=== PATIENT | female | born 1950 | race Caucasian/White ===

== ENCOUNTER 2018-12-06 19:37 | Inpatient (IN) | payer MEDICARE, SELFPAY ==
[2018-12-06] MEDS: Ondansetron 4 MG/2 ML Vial IV (19:44)
[2018-12-06] MEDS: Morphine 4 MG/ML Syringe 6 MG IV (19:46)
[2018-12-06 19:49] VITALS: BP 112/68; PULSE 82; RESP 16; TEMP 36.8; O2SAT 100; BMI 21.5
[2018-12-06 19:53] VITALS: O2SAT 100
--- NOTE | 2018-12-06 20:24 | RAD_ITS ---
STUDY: X-RAY - RIGHT KNEE REASON FOR EXAM: Female, 68 years old. Fell on right hip. TECHNIQUE: 2 view(s) of the knee. COMPARISON: None. FINDINGS: Normal visualized distal femur. Normal visualized proximal tibia and fibula. Normal proximal tibiofibular articulation. Normal medial femorotibial compartment. Normal lateral femorotibial compartment. Normal patellofemoral articulation. The soft tissue structures are unremarkable. RAD/Knee 1 or 2 Views IMPRESSION: Normal x-ray examination of the knee. Electronically Signed: Liz Aparicio MD at 21:29 EDT Tel , Service support ,
--- NOTE | 2018-12-06 20:24 | RAD_ITS ---
STUDY: X-RAY - RIGHT FEMUR REASON FOR STUDY: Female, 68 years old. Fellow and right hip. TECHNIQUE: 4 view(s) of the femur. COMPARISON: None. FINDINGS: Acute, nondisplaced intertrochanteric fracture of the right femoral neck. No angulation. The femur is otherwise unremarkable. No additional fracture is seen. Right hip joint is well-maintained. Soft tissues and bony structures are otherwise unremarkable. RAD/Femur Min 2 Views IMPRESSION: Acute nondisplaced intertrochanteric fracture of the right femoral neck. Electronically Signed: Liz Aparicio MD at 21:30 EDT Tel , Service support ,
--- NOTE | 2018-12-06 20:24 | RAD_ITS ---
STUDY: X-RAY - PELVIS REASON FOR EXAM: Female, 68 years old. Fell on right hip from retaining wall. TECHNIQUE: One view of the pelvis was obtained. COMPARISON: None. FINDINGS: Acute, nondisplaced intertrochanteric fracture of the right femoral neck. No angulation. Prior internal fixation of the left hip. No left hip fracture or periprosthetic fracture. Soft tissues and bony structures are otherwise unremarkable. RAD/Pelvis 1 or 2 Views IMPRESSION: Nondisplaced intertrochanteric fracture of the right hip. Electronically Signed: Liz Aparicio MD at 21:28 EDT Tel , Service support ,
[2018-12-06] MEDS: morphine 8 MG/ML Syringe 6 MG IV ×2 (20:34→22:04)
[2018-12-06 20:49] LABS: Hematocrit 38.2 % (37-47); Hemoglobin 13.1 g/dL (12.0-15.0); Mean Corp Hgb Conc 34.3 g/dL (32-36); Mean Corpuscular Hgb 32.3 pg (27.0-32.0); Mean Corpuscular Volume 94.1 fL (81-99); Mean Platelet Vol. 8.6 fl (6.2-12.0); Platelet Count 290 K/mm3 (150-450); RBC Distribution Width CV 12.6 % (11.6-14.6); RBC Distribution Width SD 43.6 fl (35.1-43.9); Red Blood Count 4.06 M/mm3 (4.2-5.4); White Blood Count 20.1 K/mm3 (4.4-11.0)
[2018-12-06 20:56] LABS: Anion Gap 11 (5-15); BUN 17 mg/dL (7-18); Calcium,Total 9.8 mg/dL (8.5-10.1); Chloride 103 mmol/L (98-107); Creatinine, Serum 0.85 mg/dL (0.55-1.02); EST Glomerular Filtration Rate 71 mL/min (>60); Est Glom Filt Rate - Afr Amer 85 mL/min (>60); Estimated Creatinine Clearance 53.94 ml/min; Glucose 95 mg/dL (74-106); Potassium 3.2 mmol/L (3.5-5.1); Sodium Level 139 mmol/L (136-145)
--- NOTE | 2018-12-06 21:08 | EKG12_ITS ---
Test Reason : PRE OP Blood Pressure : / mmHG Vent. Rate : 081 BPM Atrial Rate : 081 BPM P-R Int : 152 ms QRS Dur : 076 ms QT Int : 394 ms P-R-T Axes : 019 014 044 degrees QTc Int : 457 ms Normal sinus rhythm Normal ECG Confirmed by AMBER CHANCE, ANGELA ([id number]), commercial production editor LAVELLE STUART ([id number]) on 12/10/2018 10:30:43 AM Referred By: Saleem Claudio Confirmed By:ANGELA CLARK MD
--- NOTE | 2018-12-06 21:10 | RAD_ITS ---
STUDY: X-RAY CHEST REASON FOR EXAM: Female, 68 years old. Fall, injury, right hip fracture. TECHNIQUE: Portable chest. COMPARISON: None. FINDINGS: The lungs are clear and expanded. There is no demonstrated pleural abnormality. Normal size heart. Normal mediastinum and jojo. Normal visualized pulmonary arteries. Normal visualized aortic arch and descending thoracic aorta. Normal visualized thoracic spine. Normal visualized ribs, clavicles, and shoulders. There is no demonstrated abnormality of the visualized soft tissue structures of the upper abdomen. RAD/Chest 1 View (Portable) IMPRESSION: Normal x-ray examination of the chest. Electronically Signed: Liz Aparicio MD at 21:34 EDT Tel , Service support ,
--- NOTE | 2018-12-06 21:35 | ED.DCSUM_ITS ---
- ER Visit Summary Date of Service: 12/06/18 Chief Complaint: Fall with right hip pain History of Present Illness: The patient is a 68 F past medical history. She has had a prior left hip fracture which was repaired. He states she was outside today stepped and did not see there was a retaining wall and fell over fell about 3 feet onto her right hip. Was unable to stand due to pain and had to crawl on all fours back to her house. Denies other injuries. Denies any headache or head injury. She has abrasions on her elbows from crawling on all fours. Physical Examination: Older female no acute distress. Vital signs are stable afebrile. HEENT exam unremarkable atraumatic. C-spine nontender. Lungs clear to auscultation. Heart regular rhythm no murmur. Abdomen soft and nontender. Normal bowel sounds no peritoneal signs. Remedies she has pain on palpation her right hip. She has decreased range of motion of the right hip due to pain. In short and externally rotated. She has a mild pain on palpation to her right knee but is not swollen. Right lower leg is nontender. Normal DP pulse. Ankle and foot are nontender normal sensation. Left lower extremity is normal. Neurologically she is awake and alert with no focal motor deficits. Test Results: Pelvis and right hip right x-rays x2 show intertrochanteric hip fracture. Right knee x-ray shows chronic changes but no acute process. And preop chest x- ray shows no acute abnormality. Portable one view. Femur x-ray shows a hip fracture x2 views. Preop labs show white count of 20,000. She has no clinical signs or history of infection. Chemistries are normal potassium 3.2 normal creatinine and gap. Emergency Department Course and Treatment: Patient's been treated with morphine several times for pain. Zofran for nausea. I have spoken to the hospitalist and also Dr. Too Song and the patient will be admitted for right hip fracture surgery. Treatment Plan: Hip fracture repair Disposition: Admission Impression: Acute fall Acute right hip intertrochanteric fracture This note was generated with [employer] dictation software. It may contain incorrect words, spelling, and punctuation that were not noted in review of the chart prior to signing ED Disposition - Plan for ED Patient: Referrals: Jl Turner MD [Primary Care Provider] -
--- NOTE | 2018-12-06 21:47 | HP.PCM_ITS ---
Problem List (1) Closed intertrochanteric fracture of right hip Status: Acute (2) History of fracture of left hip Status: Chronic History of Present Illness Date of Admission: 12/06/18 Chief Complaint: Fall from a height on right hip and fracture The patient is a 68 year old F with no significant past medical history came to ER after she fell from a wall of about 3 height mainly on the right lateral side. As per the family members she crawled about 30 feet to her house. She was not able to stand or ambulate. She denies loss of consciousness, headache or head injury. Denies any chest pain or shortness of breath. Patient had left hip fracture and ORIF done. In ED, pelvis and right hip x-rays shows intertrochanteric hip fracture. Orthopedic surgeon Dr. Song was consulted from ER and he recommended for surgery tomorrow. Patient has good functional capacity and does not have any limitation in walking before. Denies any history of cardiac disease, pulmonary disease, stroke or GI disorder. Denies any recent flulike illness. No lower urinary tract symptoms. Patient denies history of smoking. Chest x-ray was done and reported as normal x-ray. EKG was reviewed and normal sinus rhythm at 81 beats/m. [] Laboratory Results 12/06/18 20:34: WBC 20.1 H, RBC 4.06 L, Hgb 13.1, Hct 38.2, MCV 94.1, MCH 32.3 H , MCHC 34.3, RDW Std Deviation 43.6, RDW Coeff of Luis Miguel 12.6, Plt Count 290, MPV 8.6 12/06/18 20:34: Sodium 139, Potassium 3.2 L, Chloride 103, Carbon Dioxide 25.0, Anion Gap 11, BUN 17, Creatinine 0.85, Estim Creat Clear Calc 53.94, Est GFR (MDRD) Af Amer 85, Est GFR (MDRD) Non-Af 71, BUN/Creatinine Ratio 20.0, Glucose 95, Calcium 9.8 12/06/18 21:20: Blood Type Pending, Antibody Screen Pending Past Medical History Past Medical History (Chronic Problems): Chronic Problems History of fracture of left hip (Chronic) Allergies No Known Allergies Allergy (Verified 12/06/18 19:57) Home Medications: Ambulatory Orders Medication Instructions Recorded NK 12/06/18 Smoking Status: Never smoker - *Family History Paternal History Items: Hypertension Maternal History Items: Hypertension Review of Systems Constitutional: Denies: Chills, Fever, Weight Change HEENT: Denies: Head Aches, Sinus Congestion, Sinus Drainage Cardiovascular: Denies: Chest Pain, Palpitations Respiratory: Denies: Cough, Shortness of breath at rest, Sputum production Gastrointestinal: Denies: Abdominal Pain, Nausea, Vomiting Genitourinary: Denies: Dysuria Musculoskeletal: Reports: Joint Pain. Denies: Joint Tenderness Skin: Denies: Rash, Wounds Neurological: Denies: Numbness, Tingling, Focal weakness Psychiatric: Denies: Anxiety, Depression, Homicidal Ideations, Suicidal Ideations Hematologic/ Lymphatic: Denies: Easy Bruising, Easy Bleeding VTE Information - Inpt Only VTE Present on Admission: No VTE Mechan Device Prophylaxis: None VTE Pharm Prophylaxis ordered?: Yes Patient Problems: Active and Suspected Problems Closed intertrochanteric fracture of right hip (Acute) - Physical Exam General: Alert, Oriented x3, Cooperative HEENT: Atraumatic, PERRLA, EOMI, Normocephalic Neck: Supple, No JVD, Negative Carotid Bruits Lungs: Clear to auscultation, Normal air movement, No rhonchi, No wheeze, No rales Cardiovascular: Regular rate, Regular Rhythm, Normal S1, Normal S2, No murmurs Abdomen: Bowel Sounds Present, Soft, Non Tender, Non-Distended Extremities: No edema, Capillary Refill Less than 3 Seconds Skin: No rashes, No breakdown Musculoskeletal: Arthritic Changes, Tenderness - Over greater trochanter of right hip., - - Some bruise present on elbow because of crawling Neurological: Cranial nerves II-XII grossly intact, Deep Tendon Reflexes 2+/4 and Symmetrical, Neuro grossly intact Psych/Mental Status: Normal Affect, Appropriate Vital Signs Temp Pulse Resp BP Pulse Ox 98.3 F 82 16 112/68 100 12/06/18 19:49 12/06/18 19:49 12/06/18 19:49 12/06/18 19:49 12/06/18 19:53 Oxygen Delivery Method Room Air Weight: 125 lb 9.245 oz Body Mass Index (BMI) 21.5 Laboratory Tests Past 24 Hrs 12/06/18 12/06/18 12/06/18 20:34 20:34 21:20 WBC 20.1 H RBC 4.06 L Hgb 13.1 Hct 38.2 MCV 94.1 MCH 32.3 H MCHC 34.3 RDW Std Deviation 43.6 RDW Coeff of Luis Miguel 12.6 Plt Count 290 MPV 8.6 Sodium 139 Potassium 3.2 L Chloride 103 Carbon Dioxide 25.0 Anion Gap 11 BUN 17 Creatinine 0.85 Estim Creat Clear Calc 53.94 Est GFR (MDRD) Af Amer 85 Est GFR (MDRD) Non-Af 71 BUN/Creatinine Ratio 20.0 Glucose 95 Calcium 9.8 Blood Type Pending Antibody Screen Pending Assessment/Plan All Active Problems Closed intertrochanteric fracture of right hip (Acute) The patient is a 68 year old F with no significant past medical history came to ER after she fell from a wall of about 3 height mainly on the right lateral side.Patient had left hip fracture and ORIF done. In ED, pelvis and right hip x-rays shows intertrochanteric hip fracture. Orthopedic surgeon Dr. Song was consulted from ER and he recommended for surgery tomorrow. Chest x-ray was done and reported as normal x-ray. EKG was reviewed and normal sinus rhythm at 81 beats/m. 1. Closed right hip intertrochanteric fracture: Patient is being admitted on [facility] floor. Revised cardiac risk index for preoperative score is 0 point, class I risk. It was 3.9% 30-day risk of , [place] or cardiac arrest. Patient has good functional capacity. N.p.o. post midnight. Orthopedic surgeon Dr. Too Song has been consulted. Heparin 5000 units 1 dose tonight and then hold until surgery. Pain control. IV fluid normal saline 100 normal per hour. PT and OT ordered. 2. History of left hip fracture status post ORIF in the past: DVT prophylaxis: As mentioned above. Postoperative prophylaxis as per description of the surgeon and intraoperative findings [] Laboratory Results 12/06/18 20:34: WBC 20.1 H, RBC 4.06 L, Hgb 13.1, Hct 38.2, MCV 94.1, MCH 32.3 H , MCHC 34.3, RDW Std Deviation 43.6, RDW Coeff of Luis Miguel 12.6, Plt Count 290, MPV 8.6 12/06/18 20:34: Sodium 139, Potassium 3.2 L, Chloride 103, Carbon Dioxide 25.0, Anion Gap 11, BUN 17, Creatinine 0.85, Estim Creat Clear Calc 53.94, Est GFR (MDRD) Af Amer 85, Est GFR (MDRD) Non-Af 71, BUN/Creatinine Ratio 20.0, Glucose 95, Calcium 9.8 12/06/18 21:20: Blood Type Pending, Antibody Screen Pending Clinical Impression(s) from Imaging Studies Femur X-Ray 12/06/18 20:24 IMPRESSION: Acute nondisplaced intertrochanteric fracture of the right femoral neck. Knee X-Ray 12/06/18 20:24 IMPRESSION: Normal x-ray examination of the knee. Pelvis X-Ray 12/06/18 20:24 IMPRESSION: Nondisplaced intertrochanteric fracture of the right hip. Electronically Signed: Liz Aparicio MD at 21:28 EDT Tel , Service support , Chest X-Ray 12/06/18 21:10 IMPRESSION: Normal x-ray examination of the chest. Code Visit Inpatient E&M: 37141 Init Hosp L3
[2018-12-06 22:03] VITALS: BP 135/69; PULSE 84; RESP 16; O2SAT 100
[2018-12-06 22:07] VITALS: BP 135/69; PULSE 89; RESP 16; TEMP 37.1; O2SAT 100
[2018-12-06 22:51] VITALS: BP 131/83; PULSE 87; RESP 20; TEMP 37.1; O2SAT 98
[2018-12-06 22:53] VITALS: BMI 21.4
[2018-12-06 23:00] VITALS: BMI 56.6
[2018-12-06] MEDS: oxyCODONE 5 MG Tablet PO (23:59)
[2018-12-07] VITALS (15 sets, daily range): BP systolic 91–127; BP diastolic 35–61; PULSE 59–86; RESP 16–18; TEMP 36.4–37.2; O2SAT 93–99; BMI 56.6
[2018-12-07] MEDS: 0.9% Normal Saline 1,000 ML 100 ML IV
[2018-12-07] MEDS: Heparin Injection (Vial) 5,000 UNIT/ML VIAL 5000 UNIT SC
[2018-12-07] MEDS: 0.9% NaCl Peripheral Flush Adult/Peds IV ×2 (00:05→22:38)
[2018-12-07] MEDS: HYDROmorphone 0.5 MG/0.5 ML SYRINGE IV ×2 (05:51→09:34)
[2018-12-07 06:20] LABS: Absolute Lymphocyte Count 1.84 X10^3/uL (0.83-4.51); Absolute Neutrophil Count 5.1 X10^3/uL (2.0-7.7); Basophil# 0.02 X10^3/uL; Basophil% 0.3 % (0-1); Eosinophil# 0.14 X10^3/uL; Eosinophils% 1.8 % (0-5); Hematocrit 34.8 % (37-47); Hemoglobin 11.8 g/dL (12.0-15.0); Lymphocyte # 1.84 X10^3/ul (4.0); Lymphocyte % 24.1 % (19-41); Mean Corp Hgb Conc 33.9 g/dL (32-36); Mean Corpuscular Hgb 32.1 pg (27.0-32.0); Mean Corpuscular Volume 94.6 fL (81-99); Mean Platelet Vol. 8.8 fl (6.2-12.0); Monocyte# 0.55 X10^3/uL; Monocyte% 7.2 % (0-10); NRBC Flagged by Analyzer 0 % (0-5); Neutrophil # 5.07 X10^3/uL (2.7-7.7); Neutrophil % 66.3 % (47-70); Platelet Count 232 K/mm3 (150-450); RBC Distribution Width CV 12.9 % (11.6-14.6); RBC Distribution Width SD 44.7 fl (35.1-43.9); Red Blood Count 3.68 M/mm3 (4.2-5.4); White Blood Count 7.6 K/mm3 (4.4-11.0)
[2018-12-07 06:34] LABS: Anion Gap 2 (5-15); BUN 13 mg/dL (7-18); BUN/Creat Ratio 17.9 RATIO (10-20); Calcium,Total 8.6 mg/dL (8.5-10.1); Chloride 105 mmol/L (98-107); Creatinine, Serum 0.73 mg/dL (0.55-1.02); EST Glomerular Filtration Rate 84 mL/min (>60); Est Glom Filt Rate - Afr Amer 102 mL/min (>60); Estimated Creatinine Clearance 45.85 ml/min; Glucose 101 mg/dL (74-106); Magnesium 1.8 mg/dL (1.6-2.6); Potassium 4.6 mmol/L (3.5-5.1); Sodium Level 136 mmol/L (136-145)
--- NOTE | 2018-12-07 08:25 | PN_ITS ---
Patient Problems: Active and Suspected Problems (Last Updated 12/07/18 @ 11:11 by Too Song MD) Closed intertrochanteric fracture of right hip (Acute) Subjective: The patient is a 68-year-old female with no significant past medical history who presented to the emergency department at [facility] on 12/06/2018 after falling from a wall which was approximately 3 feet in height. She fell on her right side and was complaining of right hip pain. She had to crawl approximately 30 feet to her house to reach the phone. She was unable to stand or ambulate. She denied loss of consciousness, headache or any head injury. X- rays in the emergency department showed a acute nondisplaced intertrochanteric fracture of the right femoral neck. Right knee x-ray was normal. Chest x-ray showed hyperexpansion but no infiltrates, pleural effusions or pulmonary vascular congestion. Vital signs at presentation to the emergency department were temp 98.3, pulse rate 82, blood pressure 112/68, respiratory rate 16 and she was 100% saturated on room air. CBC was remarkable for an elevated white blood cell count at 20.1, hemoglobin 13.1 and platelets of 290,000. Potassium was low at 3.2 and the BUN was 17 with a creatinine of 0.85. Calcium was 9.8. EKG showed normal sinus rhythm with no suspicious ST or T wave changes. She denies chest pain, shortness of breath with exertion, palpitations, any history of syncope, family history of cardiovascular disease. - Physical Exam General: Alert, Oriented x3, Cooperative, - - Appears to be in pain HEENT: Atraumatic, PERRLA, EOMI, Normocephalic Oral: Dry Mucosa Neck: Supple, No JVD, Negative Carotid Bruits, Trachea Midline Lungs: Clear to auscultation - Anterior and lateral Cardiovascular: Regular rate, Regular Rhythm, Normal S1, Normal S2, No murmurs, No rub noted, No Gallop Abdomen: Bowel Sounds Present, Soft, Non Tender, Non-Distended Extremities: No clubbing, No cyanosis, No edema, Capillary Refill Less than 3 Seconds, Peripheral Pulses Normal, - - Intact sensation both lower extremities Skin: No rashes, No breakdown Neurological: Cranial nerves II-XII grossly intact, Neuro grossly intact Psych/Mental Status: Normal Affect, Appropriate Vital Signs Temp Pulse Resp BP Pulse Ox 98.7 F 78 16 127/50 H 99 12/07/18 04:47 12/07/18 04:47 12/07/18 04:47 12/07/18 04:47 12/07/18 04:47 Oxygen Delivery Method Room Air Weight: 129 lb 6.581 oz Body Mass Index (BMI) 21.4 Intake and Output for Last 24 Hours 12/05/18 12/06/18 12/07/18 23:59 23:59 23:59 Intake Total 776 / 776 Output Total 650 / 650 Balance 126 / 126 Laboratory Tests Past 24 Hrs 12/06/18 12/06/18 12/06/18 20:34 20:34 21:20 WBC 20.1 H RBC 4.06 L Hgb 13.1 Hct 38.2 MCV 94.1 MCH 32.3 H MCHC 34.3 RDW Std Deviation 43.6 RDW Coeff of Luis Miguel 12.6 Plt Count 290 MPV 8.6 Immature Gran % (Auto) Neut % (Auto) Lymph % (Auto) [place] % (Auto) Eos % (Auto) Baso % (Auto) Absolute Neuts (auto) Absolute Lymphs (auto) Nucleated RBC % APTT Sodium 139 Potassium 3.2 L Chloride 103 Carbon Dioxide 25.0 Anion Gap 11 BUN 17 Creatinine 0.85 Estim Creat Clear Calc 53.94 Est GFR (MDRD) Af Amer 85 Est GFR (MDRD) Non-Af 71 BUN/Creatinine Ratio 20.0 Glucose 95 Calcium 9.8 Magnesium Blood Type A POSITIVE Antibody Screen NEGATIVE 12/07/18 12/07/18 12/07/18 05:57 05:57 05:57 WBC 7.6 RBC 3.68 L Hgb 11.8 L Hct 34.8 L MCV 94.6 MCH 32.1 H MCHC 33.9 RDW Std Deviation 44.7 H RDW Coeff of Luis Miguel 12.9 Plt Count 232 MPV 8.8 Immature Gran % (Auto) 0.300 Neut % (Auto) 66.3 Lymph % (Auto) 24.1 [place] % (Auto) 7.2 Eos % (Auto) 1.8 Baso % (Auto) 0.3 Absolute Neuts (auto) 5.1 Absolute Lymphs (auto) 1.84 Nucleated RBC % 0 APTT 30.0 Sodium 136 Potassium 4.6 Chloride 105 Carbon Dioxide 29.0 Anion Gap 2 L BUN 13 Creatinine 0.73 Estim Creat Clear Calc 45.85 Est GFR (MDRD) Af Amer 102 Est GFR (MDRD) Non-Af 84 BUN/Creatinine Ratio 17.9 Glucose 101 Calcium 8.6 Magnesium 1.8 Blood Type Antibody Screen Medical Necessity - Tobacco Use Smoking Status: Never smoker Assessment/Plan All Active Problems (Last Updated 12/07/18 @ 11:11 by Too Song MD) Closed intertrochanteric fracture of right hip (Acute) Impressions 1. Nondisplaced intertrochanteric fracture right hip secondary to a fall 2. Leukocytosis secondary to stress response 3. Hypokalemia K supplemented surgery today at [address] Duncan rosenthal lab in the AM Code Visit Inpatient E&M: 28065 Subs Hosp L2
[2018-12-07] MEDS: Cefazolin 2 GM in 0.9% Normal Saline 100 ML IV (10:23)
--- NOTE | 2018-12-07 10:30 | RAD_ITS ---
STUDY: X-RAY -RIGHT HIP REASON FOR EXAM: Female, 68 years old. Fluoroscopic guidance for femur fracture fixation TECHNIQUE: 6 fluoroscopic views of the right hip. 110 seconds of fluoroscopy time. COMPARISON: 12/06/2018 FINDINGS: Fixation screw of the right femoral neck stands intratrochanteric fracture with gross radiographic alignment. Medullary kishore extends into the proximal femur with a distal interlocking screw. RAD/Hip Min 2 Views (Portable) IMPRESSION: Fluoroscopic guidance for right IT fracture fixation. Electronically Signed: Michoacano Cheek MD at 12:51 EDT , Service support ,
--- NOTE | 2018-12-07 11:09 | CON.PCM_ITS ---
Reason for Consult Date of Consultation: 12/07/18 History of Present Illness: The patient is a 68 year old female patient that was at home yesterday doing some gardening. She fell about 3 feet over a retaining wall. She hurt her right hip. She was fine before that. She does not normally use a cane or walk er. Denies pre-existing right hip pain. Denies head injury or loss of consciousness. Patient had a left hip fracture treated by Dr. Cantrell after falling on ice many years ago. She recovered well from that surgery. [] Past Medical History Past Medical History (Chronic Problems): Chronic Problems (Last Updated 12/07/18 @ 11:11 by Too Song MD) History of fracture of left hip (Chronic) Medical History: Medical History (Last Updated 12/07/18 @ 11:11 by Too Song MD) Hip fracture, intertrochanteric S72.143A Hip fracture, left S72.002A Allergies No Known Allergies Allergy (Verified 12/06/18 19:57) Home Medications: Ambulatory Orders Medication Instructions Recorded Multivitamins,Therapeutic 1 tab PO DAILY 12/06/18 [Multivitamin] Surgical History: Surgical History (Last Updated 12/07/18 @ 11:11 by Too Song MD) History of section Z98.891 Surgical History: no surgical history Smoking Status: Never smoker - *Family History Paternal History Items: Hypertension Maternal History Items: Hypertension Review of Systems Constitutional: Denies: Chills, Fever, Weight Change HEENT: Denies: Head Aches, Sinus Congestion, Sinus Drainage Cardiovascular: Denies: Chest Pain, Palpitations Respiratory: Denies: Cough, Shortness of breath at rest, Sputum production Gastrointestinal: Denies: Abdominal Pain, Nausea, Vomiting Genitourinary: Denies: Dysuria Musculoskeletal: Reports: Leg Pain Skin: Denies: Rash, Wounds Neurological: Denies: Numbness, Tingling, Focal weakness Psychiatric: Denies: Anxiety, Depression, Homicidal Ideations, Suicidal Ideations Hematologic/ Lymphatic: Denies: Easy Bruising, Easy Bleeding Patient Problems: Active and Suspected Problems (Last Updated 12/07/18 @ 11:11 by Too Song MD) Closed intertrochanteric fracture of right hip (Acute) Objective: Right hip has pain on palpation. Right hip has pain with rotation. Left hip has a well-healed incision. Left hip has no pain with rotation. No significant deformity of the legs. No calf pain or swelling bilaterally. Negative Homans sign bilaterally. Good active motion toes and ankles. Legs are neurovascular intact. X-rays AP pelvis , femur films shows a left hip screw and sideplate in good position. No severe left hip joint arthritis. Right hip shows an intertrochanteric fracture mildly displaced. No significant right hip joint arthritis. Laboratory work and vital signs reviewed. - Physical Exam Vital Signs Temp Pulse Resp BP Pulse Ox 98.7 F 78 16 127/50 H 98 12/07/18 04:47 12/07/18 04:47 12/07/18 04:47 12/07/18 04:47 12/07/18 09:27 Oxygen Delivery Method Room Air Weight: 58.7 kg Body Mass Index (BMI) 21.4 Intake and Output for Last 24 Hours 12/05/18 12/06/18 12/07/18 23:59 23:59 23:59 Intake Total 1243 / 1243 Output Total 975 / 975 Balance 268 / 268 Laboratory Tests Past 24 Hrs 12/06/18 12/06/18 12/06/18 20:34 20:34 21:20 WBC 20.1 H RBC 4.06 L Hgb 13.1 Hct 38.2 MCV 94.1 MCH 32.3 H MCHC 34.3 RDW Std Deviation 43.6 RDW Coeff of Luis Miguel 12.6 Plt Count 290 MPV 8.6 Immature Gran % (Auto) Neut % (Auto) Lymph % (Auto) [place] % (Auto) Eos % (Auto) Baso % (Auto) Absolute Neuts (auto) Absolute Lymphs (auto) Nucleated RBC % APTT Sodium 139 Potassium 3.2 L Chloride 103 Carbon Dioxide 25.0 Anion Gap 11 BUN 17 Creatinine 0.85 Estim Creat Clear Calc 53.94 Est GFR (MDRD) Af Amer 85 Est GFR (MDRD) Non-Af 71 BUN/Creatinine Ratio 20.0 Glucose 95 Calcium 9.8 Magnesium Blood Type A POSITIVE Antibody Screen NEGATIVE 12/07/18 12/07/18 12/07/18 05:57 05:57 05:57 WBC 7.6 RBC 3.68 L Hgb 11.8 L Hct 34.8 L MCV 94.6 MCH 32.1 H MCHC 33.9 RDW Std Deviation 44.7 H RDW Coeff of Luis Miguel 12.9 Plt Count 232 MPV 8.8 Immature Gran % (Auto) 0.300 Neut % (Auto) 66.3 Lymph % (Auto) 24.1 [place] % (Auto) 7.2 Eos % (Auto) 1.8 Baso % (Auto) 0.3 Absolute Neuts (auto) 5.1 Absolute Lymphs (auto) 1.84 Nucleated RBC % 0 APTT 30.0 Sodium 136 Potassium 4.6 Chloride 105 Carbon Dioxide 29.0 Anion Gap 2 L BUN 13 Creatinine 0.73 Estim Creat Clear Calc 45.85 Est GFR (MDRD) Af Amer 102 Est GFR (MDRD) Non-Af 84 BUN/Creatinine Ratio 17.9 Glucose 101 Calcium 8.6 Magnesium 1.8 Blood Type Antibody Screen Assessment/Plan All Active Problems (Last Updated 12/07/18 @ 11:11 by Too Song MD) Closed intertrochanteric fracture of right hip (Acute) Right hip acute traumatic intertrochanteric fracture. Diagnosis and treatment discussed with her at length. She would like to proceed with surgery, proposed intramedullary fixation with a short gamma nail. Risk of surgery including but not limited to from operative or postoperative complications. Risk of anesthetic complications such as heart attacks, strokes, seizures, or . Risk of infections. Risk of damage to nerves arteries tendons. Risk of inadvertent fractures or dislocations. Risk of bone or wound healing complications. Possibility of nonunion malunion pain stiffness weakness. Possible need for further surgery such as hardware removal. Risk of DVT PE and other potential complications could lead to or di sability explained. No guarantees were stated or implied. All of their questions were answered. Appropriate informed consent was obtained and signed for surgical intervention. Plan Ancef for perioperative antibiotic. Aspirin for perioperative blood thinner. We will discharged home in 1 to 2 days.
--- NOTE | 2018-12-07 11:17 | PRO.PCM_ITS ---
Procedure Report Date of Procedure: 12/07/18 Preoperative diagnosis: Right hip displaced intertrochanteric fracture Postoperative diagnosis: Same Title of operation: Right hip open reduction internal fixation, intramedullary nail fixation, locked Surgeon: Dr. Too Song Clinical Rn: Debbie Marrero PA-C Anesthesia: General Medications: Ancef Complications none EBL 100 Indications for surgery: Patient is an 68-year-old female sustained a hip fracture yesterday. Patient explained diagnosis and treatment options. Patient evaluated by the medical services. Patient did wish to have surgery. Appropriate informed consent obtained and signed. Findings: Patient had a displaced intertrochanteric hip fracture. They underwent standard reduction, internal fixation using a [place] short gamma nail. X-rays taken throughout. pharmacy innovation assistant, physician automotive parts counter assistant, was utilized throughout the entire procedure. They were vital to the procedure from beginning to end. They help with patient transfer, patient padding and positioning, fracture reduction, maintenance of fracture reduction, internal fixation of implants, wound closure, bandage application, patient transfer. Without surgical assistant, surgical time would have been significantly increased and surgical outcome could have been less optimal. Procedure: Patient was taken to the operating room. Placed under a general anesthetic and transferred to the operating table with the help of the automotive parts counter assistant. With the help of the automotive parts counter assistant patient was prepped and padded for surgery. Operative side foot was well-padded and placed in the traction boot. Uninjured lower extremity was abducted and flexed out of harms way. SUSAN hose and SCDs utilized. Fluoroscopy was brought in. With the help of the automotive parts counter assistant and manipulation of the limb, reduction was nicely obtained as verified under AP lateral and oblique fluoroscopic images. . Operative hip/thigh was prepped padded draped in usual orthopedic sterile fashion for the procedure. Longitudinal incision was made just proximal to the greater trochanter. Taken through skin and subcutaneous tissue. Sharp awl was placed on the tip of the greater trochanter. Position verified under AP and lateral fluoroscopic images. This was then taken down inside the bone. Slightly bent ball-tipped guide kishore was then placed from the tip of the greater trochanter into the intra-medullary canal of the femur. Its position verified radiographically. Reamer was then done over the tip of this with the help of the automotive parts counter assistant holding the soft tissue protector appropriately. Once reaming was done we placed the short 125? angle device over the guidepin. This was easily introduced. Guide kishore removed. Outrigger device was utilized to position a guidepin from the lateral cortex of the femur across the fracture site and into the femoral head in a good position centrally, as noted on AP lateral and oblique fluoroscopic images. This was measured. Appropriate reaming done. Appreciate length lag screw was placed from the lateral cortex of the femur into the femoral head. A small amount of the screw was noted to be protruding laterally as planned. No cartilage penetration of the femoral head noted on any x-ray. Fracture was then compressed with the outrigger device. Proximal cap screw was placed by the automotive parts counter assistant seated down completely, confirmed, and then loosened one fourth turn. We then used the outrigger device to place distal cross locking screw under standard technique. This was confirmed to be of adequate length in good position on AP and lateral images. Outrigger device removed. Final set of AP and lateral proximal x-rays taken and saved. Incisions thoroughly irrigated. Closing by the automotive parts counter assistant with deep 0 Vicryl, mid layer 0 Vicryl, inverted 2-0 Vicryl, skin josh. Puncture wounds closed with inverted 2-0 Vicryl and josh. Xeroform 4 x 4's ABD tape applied. Patient was awoken from their anesthetic, transferred back to their own bed with the help of the automotive parts counter assistant and into recovery room in satisfactory condition. Patient will continue to be admitted to the hospital under the hospitalist service. Plan aspirin for DVT prevention. Weightbearing as tolerated. This note was generated with [employer] dictation software. It may contain incorrect words, spelling, and punctuation that were not noted in checking the note before signing.
[2018-12-07] MEDS: Cefazolin 1 GM/50 ML BAG IV ×2 (16:05→22:39)
[2018-12-07] MEDS: MELATONIN 3 MG TABLET PO (22:38)
[2018-12-08 02:57] VITALS: BP 100/47; PULSE 79; RESP 16; TEMP 36.4; O2SAT 97
[2018-12-08] MEDS: oxyCODONE 5 MG Tablet PO ×2 (03:54→21:24)
[2018-12-08] MEDS: Cefazolin 1 GM/50 ML BAG IV (03:56)
[2018-12-08 06:22] LABS: Hematocrit 29.3 % (37-47); Hemoglobin 9.7 g/dL (12.0-15.0); Mean Corp Hgb Conc 33.1 g/dL (32-36); Mean Corpuscular Hgb 31.3 pg (27.0-32.0); Mean Corpuscular Volume 94.5 fL (81-99); Platelet Count 219 K/mm3 (150-450); RBC Distribution Width CV 12.7 % (11.6-14.6); White Blood Count 9.8 K/mm3 (4.4-11.0)
[2018-12-08 06:51] LABS: AST(SGOT) 13 U/L (15-37); Alanine Aminotransfer ALT/SGPT 16 U/L (13-56); Albumin, Serum 3.3 g/dL (3.2-5.0); Alkaline Phosphatase 66 U/L (45-117); Anion Gap 4 (5-15); BUN 13 mg/dL (7-18); BUN/Creat Ratio 18.8 RATIO (10-20); Calcium,Total 8.8 mg/dL (8.5-10.1); Chloride 102 mmol/L (98-107); Cholesterol 161 mg/dL (200); Creatinine, Serum 0.69 mg/dL (0.55-1.02); EST Glomerular Filtration Rate 90 mL/min (>60); Est Glom Filt Rate - Afr Amer 108 mL/min (>60); Estimated Creatinine Clearance 45.85 ml/min; Globulin 3.3 g/dL (2.2-4.2); Glucose 126 mg/dL (74-106); High Density Lipoprotein 89 mg/dL; Magnesium 1.9 mg/dL (1.6-2.6); Potassium 4.4 mmol/L (3.5-5.1); Protein, Total 6.6 g/dL (6.4-8.2); Sodium Level 134 mmol/L (136-145); Triglycerides 86 mg/dL; Very Low Density Lipoprotein 17 mg/dL (5-40)
[2018-12-08] MEDS: Aspirin 81 MG TAB.CHEW PO ×2 (09:26→17:22)
[2018-12-08 09:43] VITALS: BP 115/45; PULSE 87; RESP 18; TEMP 36.8; O2SAT 100
--- NOTE | 2018-12-08 10:45 | CASEMGMT ---
STEFFI CURIEL Face to Face with patient for initial transition planning/care coordination assessment. STEFFI CURIEL introduced self and role at [facility]. Patient lying in bed, alert and oriented. Patient willing to participate in assessment and is able to answer all questions appropriately. Care providers, pharmacy, and demographics verified. Patient wishes to discharge home, with outpatient therapy at [facility]. Patient states she has no further needs or concerns at this time. CM to follow for discharge planning needs that may arise. PCP: Yue Specialists: None Preferred Pharmacy: [facility] Insurance: [employer] [facility] PPO Prescription Benefit: yes Living Will/HPOA: yes, Ina Fuentes LNOK: Living Arrangements: Patient lives with in 1 story home with 1 step to enter the home. Patient was independent prior to hospitalization. Transportation: DME/HHC: Patient states she has walker, cane, raised toilet seat, and shower chair. Patient would like outpatient therapy setup at [facility]. STEFFI CURIEL called [facility] and setup therapy appt for 12/10/18999. Disposition Plan: Patient to discharge home with outpatient therapy, family support, and follow-up plans in place. Caity AL, RN, CM
--- NOTE | 2018-12-08 11:59 | PCM.PN.ORT ---
Patient Problems: Active and Suspected Problems (Last Updated 12/07/18 @ 11:11 by Too Song MD) Closed intertrochanteric fracture of right hip (Acute) Subjective: The patient was sitting in bed upon examination. Patient denies any chest pain, shortness of breath, dizziness, lightheadedness, nausea or vomiting, or calf pain. Pain is controlled on medications. No adverse overnight events. Patient has worked with physical therapy and only walk 15 feet. Her pain is well controlled. I did discuss case with hospitalist and at this point we recommend 1 more night to get additional therapy. Plan will be for discharge home with outpatient therapy tomorrow. Objective: Vital signs stable and afebrile. Patient is able to plantarflex and dorsiflex actively. Sensation is intact to light touch to saphenous, sural, superficial and deep peroneal, and tibial distribution. Dressing is clean dry and intact. Negative Homans bilaterally, negative signs and symptoms of DVT. - Physical Exam General: Alert, Oriented x3, Cooperative, No apparent distress Vital Signs Temp Pulse Resp BP Pulse Ox 98.2 F 87 18 115/45 L 100 12/08/18 09:43 12/08/18 09:43 12/08/18 09:43 12/08/18 09:43 12/08/18 09:43 Oxygen Flow Rate (L/min) 2 Oxygen Delivery Method Room Air Weight: 56.1 kg Body Mass Index (BMI) 21.4 Intake and Output for Last 24 Hours 12/06/18 12/07/18 12/08/18 23:59 23:59 23:59 Intake Total 3333 / 3333 204 / 204 Output Total 2675 / 2675 775 / 775 Balance 658 / 658 -571 / -571 Laboratory Tests Past 24 Hrs 12/08/18 12/08/18 06:00 06:00 WBC 9.8 RBC 3.10 L Hgb 9.7 L Hct 29.3 L MCV 94.5 MCH 31.3 MCHC 33.1 RDW Std Deviation 44.0 H RDW Coeff of Luis Miguel 12.7 Plt Count 219 MPV 9.0 Sodium 134 L Potassium 4.4 Chloride 102 Carbon Dioxide 28.0 Anion Gap 4 L BUN 13 Creatinine 0.69 Estim Creat Clear Calc 45.85 Est GFR (MDRD) Af Amer 108 Est GFR (MDRD) Non-Af 90 BUN/Creatinine Ratio 18.8 Glucose 126 H Calcium 8.8 Magnesium 1.9 Total Bilirubin 0.90 AST 13 L ALT 16 Alkaline Phosphatase 66 Total Protein 6.6 Albumin 3.3 Globulin 3.3 Albumin/Globulin Ratio 1.0 Triglycerides 86 Cholesterol 161 LDL Cholesterol 55 VLDL Cholesterol 17 HDL Cholesterol 89 Medical Necessity - Tobacco Use Smoking Status: Never smoker Assessment/Plan All Active Problems (Last Updated 12/07/18 @ 11:11 by Too Song MD) Closed intertrochanteric fracture of right hip (Acute) 1. S/P open reduction internal fixation right hip with intramedullary nail locked POD #1 2. Continue Pain Medications: Tylenol primarily for pain control, oxycodone for severe pain 3. DVT Prophylaxis: Dr. Caldwell has placed patient on Xarelto for DVT prophylaxis 4. PT/OT: Weightbearing as tolerated with walker 5. H & H: 9.7/29.3, asymptomatic 6. Encouraged Incentive Spirometry 7. Continue postoperative medical management per medicine 8. Disposition: Discussed case with hospitalist and plan will be for discharge home tomorrow with outpatient physical therapy. Continue with Tylenol primary for pain control with only oxycodone for breakthrough pain. Patient will continue with DVT prophylaxis as above. She will need scheduled outpatient visit with Dr Too Song with x-rays and incision check and 10 days. Orthopedically stable, okay for discharge when medically stable. Please contact orthopedics with any questions or concerns. Appreciate consult.
--- NOTE | 2018-12-08 12:05 | DCINST_ITS ---
Discharge Diet: No Restrictions Discharge Activity: May Not Drive - while taking narcotic pain medications. Ice area for (Minutes): 20 - Every 1-2 hours while awake Weight Bearing Status: Weight bearing as tolerated Elevate: Operative Extremity Additional Activity Instructions:: Wear elastic stockings for 2 weeks. DO NOT use alcohol with narcotic pain medication. DO NOT make important decisions while taking narcotic medication. If you have problems with taking your medication (rash, itching, nausea, etc.) call the office at once. Call your doctor if your incision/area has: Increased Pain/ Swelling, Increased Redness, Foul Smelling Discharge Call your doctor if you observe: Fever of 101 or Higher Additional Instructions: Please keep incision clean and dry until follow-up Allergies/Adverse Reactions: Allergies No Known Allergies Allergy (Verified 12/06/18 19:57) Medications to take at Discharge Multivitamins,Therapeutic [Multivitamin] 1 tab PO DAILY 12/06/18 Primary Care Physician: Jl Turner MD [Primary Care Provider] - Test Results: Test results from this visit will be discussed in further detail at your follow- up appointment, if applicable. Please Follow Up With: [facility]- Therapy When: Saturday Please Follow Up With: Too Song MD When: Will need scheduled follow-up in 10 days for x-rays and incision check
[2018-12-08 14:30] VITALS: O2SAT 98
--- NOTE | 2018-12-08 14:38 | CHAPLAIN ---
Type of Pastoral Visit _x__ Initial Visit ___ Follow-up Visit ___ On-call Visit ___ General Patient Visit ___ Spiritual Assessment ___ Family Conference ___ Bereavement ___ Rapid Response ___ Code Blue ___ Other (describe below) Pastoral Care Referral From _x__ Patient ___ Family ___ Nurse ___ Physician ___ Pump Room Operator ___ Steelworker ___ Other (describe below) Sacrament/Intervention _x__ Active listening ___ Anointing ___ Confucianism ___ Bereavement ___ Communion ___ Jeri exploration ___ ___ Life review ___ Prayer ___ Reconciliation ___ Sacrament of Sick _x__ Supportive presence ___ Wedding ___ Other (describe below) Pastoral Comments
[2018-12-08 14:57] VITALS: BP 98/58; PULSE 73; RESP 18; TEMP 37.2; O2SAT 100
--- NOTE | 2018-12-08 16:27 | PN_ITS ---
Patient Problems: Active and Suspected Problems (Last Updated 12/07/18 @ 11:11 by Too Song MD) Closed intertrochanteric fracture of right hip (Acute) Subjective: Postoperative day #1 Afebrile, vital signs stable, 90 to 100% saturated on room air. All lab was personally reviewed. Hemoglobin has dropped to 9.7 from 13.1 at admission. White blood cell count and platelets remain within normal limits. Sodium is mildly decreased at 134 and the potassium is 4.4. BUN and creatinine are unremarkable. States her pain is adequately controlled today. She did have muscle spasms in her left leg last evening but this is resolved. She was able to ambulate 15 feet with physical therapy using a FWW. Physical therapy recommends outpatient PT at discharge. Objective: PHYSICAL EXAM: GENERAL: alert, oriented X 3, Cooperative, NAD, eating breakfast when I examined her ORAL: moist mucosa, no mucosal lesions NECK: No JVD, supple, trachea midline LUNGS: CTA, symmetric chest expansion HEART: RRR, Normal S1 and S2, no rub, no gallop ABDOMEN: soft, NT, ND, BS present, no guarding with palpation EXTREMITIES: no edema, no cyanosis, no calf tenderness, intact neurovascular bundle to both feet SKIN: No rashes, no breakdown NEUROLOGIC: no focal neurologic deficits PSYCH: appropriate, normal affect, pleasant - Physical Exam Vital Signs Temp Pulse Resp BP Pulse Ox 98.9 F 73 18 98/58 L 100 12/08/18 14:57 12/08/18 14:57 12/08/18 14:57 12/08/18 14:57 12/08/18 14:57 Oxygen Flow Rate (L/min) 2 Oxygen Delivery Method Room Air Weight: 123 lb 10.869 oz Body Mass Index (BMI) 21.4 Intake and Output for Last 24 Hours 12/06/18 12/07/18 12/08/18 23:59 23:59 23:59 Intake Total 3333 / 3333 1104 / 1104 Output Total 2675 / 2675 775 / 775 Balance 658 / 658 329 / 329 Laboratory Tests Past 24 Hrs 12/08/18 12/08/18 06:00 06:00 WBC 9.8 RBC 3.10 L Hgb 9.7 L Hct 29.3 L MCV 94.5 MCH 31.3 MCHC 33.1 RDW Std Deviation 44.0 H RDW Coeff of Luis Miguel 12.7 Plt Count 219 MPV 9.0 Sodium 134 L Potassium 4.4 Chloride 102 Carbon Dioxide 28.0 Anion Gap 4 L BUN 13 Creatinine 0.69 Estim Creat Clear Calc 45.85 Est GFR (MDRD) Af Amer 108 Est GFR (MDRD) Non-Af 90 BUN/Creatinine Ratio 18.8 Glucose 126 H Calcium 8.8 Magnesium 1.9 Total Bilirubin 0.90 AST 13 L ALT 16 Alkaline Phosphatase 66 Total Protein 6.6 Albumin 3.3 Globulin 3.3 Albumin/Globulin Ratio 1.0 Triglycerides 86 Cholesterol 161 LDL Cholesterol 55 VLDL Cholesterol 17 HDL Cholesterol 89 Medical Necessity - Tobacco Use Smoking Status: Never smoker Assessment/Plan All Active Problems (Last Updated 12/07/18 @ 11:11 by Too Song MD) Closed intertrochanteric fracture of right hip (Acute) Impressions 1. Nondisplaced intertrochanteric fracture right hip secondary to a fall-status post ORIF with intramedullary nail fixation on 12/07/2018 2. Leukocytosis secondary to stress response-resolved 3. Hypokalemia-resolved 4. Acute blood loss anemia postoperatively Will keep her in the hospital today since she is going home at discharge and continue physical therapy. Probable discharge in the a.m. if she remains stable. Outpatient physical therapy at discharge Follow-up with Dr. Too Song in the office in 10 to 14 days. [place] recheck lab in the a.m. Aspirin 81 mg p.o. twice daily per orthopedics for DVT prophylaxis Code Visit Inpatient E&M: 39496 Subs Hosp L2
[2018-12-08 20:25] VITALS: BP 142/63; PULSE 99; RESP 18; TEMP 37.2; O2SAT 96
[2018-12-09 02:27] VITALS: BP 129/73; PULSE 87; RESP 18; TEMP 36.9; O2SAT 98
[2018-12-09 05:50] LABS: Hematocrit 27.8 % (37-47); Hemoglobin 9.2 g/dL (12.0-15.0); Mean Corp Hgb Conc 33.1 g/dL (32-36); Mean Corpuscular Hgb 31.6 pg (27.0-32.0); Mean Corpuscular Volume 95.5 fL (81-99); Platelet Count 195 K/mm3 (150-450); RBC Distribution Width CV 13.1 % (11.6-14.6); RBC Distribution Width SD 46.2 fl (35.1-43.9); Red Blood Count 2.91 M/mm3 (4.2-5.4); White Blood Count 7.2 K/mm3 (4.4-11.0)
[2018-12-09] MEDS: oxyCODONE 5 MG Tablet PO (05:51)
[2018-12-09 06:12] LABS: Anion Gap 7 (5-15); BUN 12 mg/dL (7-18); BUN/Creat Ratio 20.1 RATIO (10-20); Calcium,Total 8.5 mg/dL (8.5-10.1); Chloride 106 mmol/L (98-107); EST Glomerular Filtration Rate 106 mL/min (>60); Est Glom Filt Rate - Afr Amer 128 mL/min (>60); Estimated Creatinine Clearance 45.85 ml/min; Glucose 100 mg/dL (74-106); Potassium 4.1 mmol/L (3.5-5.1); Sodium Level 140 mmol/L (136-145)
[2018-12-09 07:27] VITALS: O2SAT 94
[2018-12-09 08:05] VITALS: BP 124/51; PULSE 91; RESP 16; TEMP 37.3; O2SAT 98
[2018-12-09] MEDS: Aspirin 81 MG TAB.CHEW PO (08:08)
--- NOTE | 2018-12-09 10:43 | DCINST_ITS ---
- Discharge Diagnoses Current Active Problems: Current Active and Chronic Problems (Last Updated 12/07/18 @ 11:11 by Too Song MD) Closed intertrochanteric fracture of right hip (Acute) History of fracture of left hip (Chronic) You will use the following diet at home:: No restrictions Your food should be the consistency of: Regular Your liquids should be the consistency of: Regular/Thin Discharge Activity: May Not Drive - while taking narcotic pain medications., May not drive while taking narcotic pain medications. Ice area for (Minutes): 20 - Every 1-2 hours while awake Weight Bearing Status: Weight bearing as tolerated Keep extremity elevated above heart level: Operative Extremity Additional Activity Instructions:: Wear elastic stockings for 2 weeks. DO NOT use alcohol with narcotic pain medication. DO NOT make important decisions while taking narcotic medication. If you have problems with taking your medication (rash, itching, nausea, etc.) call the office at once. Call your doctor if your incision/area has: Increased Pain/ Swelling, Increased Redness, Foul Smelling Discharge Call your doctor if you observe: Fever of 101 or Higher, Shortness of breath, Dizziness, Fainting spells, Chest pain, Uncontrolled pain Allergies/Adverse Reactions: Allergies No Known Allergies Allergy (Verified 12/06/18 19:57) Medications to take at Discharge Multivitamins,Therapeutic [Multivitamin] 1 tab PO DAILY 12/06/18 Aspirin [Aspirin, Baby] 81 mg PO BID@0800,1700 tab.chew 12/09/18 Oxycodone HCl/Acetaminophen [Percocet 5/325] 1 tablet PO Q4H PRN PRN 7 Days #30 tablet 12/09/18 The following prescriptions were given: Oxycodone HCl/Acetaminophen [Percocet 5/325] 1 tablet PO Q4H PRN PRN 7 Days #30 tablet PRN Reason: Pain Transmission Status: Sent to [facility] Primary Care Physician: Jl Turner MD [Primary Care Provider] - Please follow up with your Primary Care Physician in: as needed Test Results: Test results from this visit will be discussed in further detail at your follow- up appointment, if applicable. Please Follow Up With: [facility]- Therapy When: Saturday Please Follow Up With: Too Song MD When: Will need scheduled follow-up in 10 days for x-rays and incision check Proposed Discharge Date: 12/09/18
--- NOTE | 2018-12-09 10:57 | DS.PCM_ITS ---
Discharge Date and Diagnosis - Problem List Patient Problems: Active and Suspected Problems (Last Updated 12/07/18 @ 11:11 by Too Song MD) Hypokalemia (Acute) Acute blood loss as cause of postoperative anemia (Acute) Closed intertrochanteric fracture of right hip (Acute) Date of Admission: 12/06/18 Date of Discharge: 12/09/18 - Primary Discharge Diagnosis Active and Suspected Problems (Last Updated 12/07/18 @ 11:11 by Too Song MD) Closed intertrochanteric fracture of right hip (Acute) Hypokalemia (Acute) Acute blood loss as cause of postoperative anemia (Acute) - Secondary Discharge Diagnosis Chronic Problems (Last Updated 12/07/18 @ 11:11 by Too Song MD) no significant [facility] Hospital Course and Treatment Imaging Results: Clinical Impression(s) from Imaging Studies Femur X-Ray 12/06/18 20:24 IMPRESSION: Acute nondisplaced intertrochanteric fracture of the right femoral neck. Electronically Signed: Liz Aparicio MD at 21:30 EDT Tel , Service support , Knee X-Ray 12/06/18 20:24 IMPRESSION: Normal x-ray examination of the knee. Electronically Signed: Liz Aparicio MD at 21:29 EDT Tel , Service support , Pelvis X-Ray 12/06/18 20:24 IMPRESSION: Nondisplaced intertrochanteric fracture of the right hip. Electronically Signed: Liz Aparicio MD at 21:28 EDT Tel , Service support , Chest X-Ray 12/06/18 21:10 IMPRESSION: Normal x-ray examination of the chest. Electronically Signed: Liz Aparicio MD at 21:34 EDT Tel , Service support , Hip X-Ray 12/07/18 10:30 IMPRESSION: Fluoroscopic guidance for right IT fracture fixation. Electronically Signed: Michoacano Cheek MD at 12:51 EDT , Service support , Laboratory Results - last 24 hr 12/09/18 12/09/18 05:20 05:20 WBC 7.2 RBC 2.91 L Hgb 9.2 L Hct 27.8 L MCV 95.5 MCH 31.6 MCHC 33.1 RDW Std Deviation 46.2 H RDW Coeff of Luis Miguel 13.1 Plt Count 195 MPV 9.0 Sodium 140 Potassium 4.1 Chloride 106 Carbon Dioxide 27.0 Anion Gap 7 BUN 12 Creatinine 0.60 Estim Creat Clear Calc 45.85 Est GFR (MDRD) Af Amer 128 Est GFR (MDRD) Non-Af 106 BUN/Creatinine Ratio 20.1 H Glucose 100 Calcium 8.5 Summary of Care Provided: The patient is a 68-year-old female with no significant past medical history who presented to the emergency department at [facility] on 12/06/2018 after falling from a wall which was approximately 3 feet in height. She fell on her right side and was complaining of right hip pain. She had to crawl approximately 30 feet to her house to reach the phone. She was unable to stand or ambulate. She denied loss of consciousness, headache or any head injury. X-rays in the emergency department showed a acute nondisplaced intertrochanteric fracture of the right femoral neck. Right knee x-ray was normal. Chest x-ray showed hyperexpansion but no infiltrates, pleural effusions or pulmonary vascular congestion. Vital signs at presentation to the emergency department were temp 98.3, pulse rate 82, blood pressure 112/68, respiratory rate 16 and she was 100% saturated on room air. CBC was remarkable for an elevated white blood cell count at 20.1, hemoglobin 13.1 and platelets of 290,000. Potassium was low at 3.2 and the BUN was 17 with a creatinine of 0.85. Calcium was 9.8. EKG showed normal sinus rhythm with no suspicious ST or T wave changes. She was taken to surgery on 12/07/[address] Too Song and had ORIF of the right hip with intramedullary nail fixation, locked. Postoperative course was uneventful. Hemoglobin dropped to 9.2 on the date of discharge secondary to blood loss from the hip fracture and subsequent surgery. She was discharged on 12/09/2018 and will follow-up at [facility] for outpatient physical therapy. She was given a prescription for a front wheel walker and Percocet 5/325 mg #30 and instructed to take 1 p.o. every 4 hours as needed for pain. She will follow-up in the office with Dr. Too Song in 10 days for incision check and x-ray. PHYSICAL EXAM: GENERAL: alert, oriented X 3, Cooperative, NAD ORAL: moist mucosa, no mucosal lesions NECK: No JVD, supple, trachea midline LUNGS: CTA, symmetric chest expansion, no rhonchi, no wheezes, no rales, not tachypnea, no conversational dyspnea HEART: RRR, Normal S1 and S2, no rub, no gallop, no murmur ABDOMEN: soft, NT, ND, BS present, no guarding with palpation EXTREMITIES: no ankle edema, no cyanosis, no calf tenderness, intact neurovascular bundle both lower extremities SKIN: No rashes, no breakdown NEUROLOGIC: no focal neurologic deficits PSYCH: appropriate, normal affect, pleasant This note was generated with [employer] dictation software. It may contain incorrect words, spelling, and punctuation that were not noted in checking the note before signing. Patient Problems: Active and Suspected Problems (Last Updated 12/07/18 @ 11:11 by Too Song MD) Hypokalemia (Acute) Acute blood loss as cause of postoperative anemia (Acute) Closed intertrochanteric fracture of right hip (Acute) - Physical Exam Vital Signs Temp Pulse Resp BP Pulse Ox 99.1 F 91 16 124/51 H 98 12/09/18 08:05 12/09/18 08:05 12/09/18 08:05 12/09/18 08:05 12/09/18 08:05 Oxygen Flow Rate (L/min) 2 Oxygen Delivery Method Room Air Weight: 135 lb 9.349 oz Body Mass Index (BMI) 21.4 Intake and Output for Last 24 Hours 12/07/18 12/08/18 12/09/18 23:59 23:59 23:59 Intake Total 3333 / 3333 2004 / 2604 1100 / 1100 Output Total 2675 / 2675 775 / 1175 1100 / 1100 Balance 658 / 658 1229 / 1429 0 / 0 Laboratory Tests Past 24 Hrs 12/09/18 12/09/18 05:20 05:20 WBC 7.2 RBC 2.91 L Hgb 9.2 L Hct 27.8 L MCV 95.5 MCH 31.6 MCHC 33.1 RDW Std Deviation 46.2 H RDW Coeff of Luis Miguel 13.1 Plt Count 195 MPV 9.0 Sodium 140 Potassium 4.1 Chloride 106 Carbon Dioxide 27.0 Anion Gap 7 BUN 12 Creatinine 0.60 Estim Creat Clear Calc 45.85 Est GFR (MDRD) Af Amer 128 Est GFR (MDRD) Non-Af 106 BUN/Creatinine Ratio 20.1 H Glucose 100 Calcium 8.5 Discharge Diet: No Restrictions Discharge Activity: May Not Drive - while taking narcotic pain medications., May not drive while taking narcotic pain medications. Ice area for (Minutes): 20 - Every 1-2 hours while awake Weight Bearing Status: Weight bearing as tolerated Keep extremity elevated above heart level: Operative Extremity Additional Activity Instructions:: Wear elastic stockings for 2 weeks. DO NOT use alcohol with narcotic pain medication. DO NOT make important decisions while taking narcotic medication. If you have problems with taking your medication (rash, itching, nausea, etc.) call the office at once. Call your doctor if your incision/area has: Increased Pain/ Swelling, Increased Redness, Foul Smelling Discharge Call your doctor if you observe: Fever of 101 or Higher, Shortness of breath, Dizziness, Fainting spells, Chest pain, Uncontrolled pain Home Medications: Medications to take at Discharge Multivitamins,Therapeutic [Multivitamin] 1 tab PO DAILY 12/06/18 Aspirin [Aspirin, Baby] 81 mg PO BID@0800,1700 tab.chew 12/09/18 Oxycodone HCl/Acetaminophen [Percocet 5/325] 1 tablet PO Q4H PRN PRN 7 Days #30 tablet 12/09/18 Following Prescrptions Were Given to Patient: Oxycodone HCl/Acetaminophen [Percocet 5/325] 1 tablet PO Q4H PRN PRN 7 Days #30 tablet PRN Reason: Pain Transmission Status: Sent to [facility] Primary Care Physician: Jl Turner MD [Primary Care Provider] - Please follow up with your Primary Care Physician in: as needed Please Follow Up With: [facility]- Therapy When: Saturday Please Follow Up With: Too Song MD When: Will need scheduled follow-up in 10 days for x-rays and incision check Additional Instructions: Please keep incision clean and dry until follow-up Disposition: Home Minutes spent on discharge:: 30 Patient Condition:: Good Medical Necessity - Tobacco Use Smoking Status: Never smoker Tobacco Use: Non-smoker Meaningful Use Info Meaningful Use Diagnoses (Choose all that apply): None applicable Code Visit Inpatient E&M: 15854 Disch Hosp
--- NOTE | 2018-12-09 11:00 | CASEMGMT ---
STEFFI CURIEL received updated from hospitalist that the patient will need a FWW at discharge. Script received from hospitalist for FWW. STEFFI CM in to talk with patient regarding walker. Patient is agreeable to [facility] her insurance's preferred provider. STEFFI CURIEL sent referrral to [facility] and arranged for walker to be delivered to hospital prior to discharge. CM will continue to follow this patient and plan for a safe discharge.
[2018-12-09 12:55] VITALS: BP 135/63; PULSE 88; RESP 18; TEMP 36.7; O2SAT 98
== END 2018-12-09 14:26 | disposition home or self-care (01) | DRG 482 ==
LOC: ED 21:47 → MS3 21:51
PROVIDERS: Anesthesiology; Orthopaedic Surgery; Admitting Provider Internal Medicine; Emergency Provider Emergency Medicine; Family Provider Family Medicine; PCP Family Medicine; Referring Provider Internal Medicine; Visit Provider Internal Medicine
PROC: 0QS606Z Reposition Right Upper Femur with Intramedullary Internal Fixation Device, Open Approach (ICD-10-PCS; CPT 27245; principal; 2018-12-07 10:30)
DX: S72.144A Nondisplaced intertrochanteric fracture of right femur, initial encounter for closed fracture (principal); W17.89XA Other fall from one level to another, initial encounter; E87.6 Hypokalemia; D72.829 Elevated white blood cell count, unspecified
CPT/HCPCS: 36415; 71045; 72170; 73501; 73502; 73552; 73560; 76000; 80048; 80053; 80061; 83735; 85025; 85027; 85730; 86850; 86900; 93005; 97116; 97161; 97166; 97530; 99285; C1713; C1776; J7030; J7120; A4216; J2405

== ENCOUNTER 2020-07-12 11:09 | Outpatient (RCR) | payer MEDICARE, SELFPAY ==
[2020-07-11 09:10] VITALS: BMI 21.5
[2020-07-12] MEDS: COVID-19 VACC, MRNA(PFIZER)/PF 30 MCG/0.3 ML SYRINGE IM (11:35)
[2020-08-02] MEDS: COVID-19 VACC, MRNA(PFIZER)/PF 30 MCG/0.3 ML SYRINGE IM (11:25)
== END 2020-10-11 23:59 ==
LOC: IMMUN 11:09
PROVIDERS: PCP Family Medicine; Visit Provider Family Medicine
DX: Z23 Encounter for immunization (principal)
CPT/HCPCS: 0001A; 0002A; 91300